=== PATIENT | female | born 1955 | race Caucasian/White ===

== ENCOUNTER 2020-11-25 11:32 | Observation (INO) ==
[2020-11-25] MEDS ORDERED: SODIUM CHLORIDE 0.9% 1,000 ML IV STA (14:32)
[2020-11-25] MEDS ORDERED: cefTRIAXone 1,000 MG in SODIUM CHLORIDE 0.9% 100 ML IV STA (15:01)
[2020-11-25 15:25] LABS: Basophils % 0.6 % (0.0-0.8); Eosinophils # 0.4 10*3/uL (0.0-0.87); Eosinophils % 6.8 % (0.00-10.9); Hematocrit 31.5 VOL% (35.7-47.0); Hemoglobin 9.9 GM/DL (12.0-16.0); Immature Granulocytes % 0.3 %; Immature Granulocytes Absolute 0.02 #; Lymphocytes # 1.1 10*3/uL (1.4-4.0); Lymphocytes % 17.3 % (21.3-54.2); Mean Corpuscular HGB Conc 31.4 GM/DL (32-36); Mean Corpuscular Volume 76.5 FL (87-102); Monocytes % 7.9 % (1.7-12.7); Neutrophils % 67.1 % (38.7-73.9); Platelet Count 230 T/CUMM (130-400); Red Blood Count 4.12 MC/CUMM (3.8-5.5); Red Cell Distribution Width 14.7 % (9.3-17.3); White Blood Count 6.4 T/CUMM (4-12)
[2020-11-25 15:50] LABS: Alanine Aminotransferase 15 U/L (13-56); Albumin 3.2 G/DL (3.4-5.0); Alkaline Phosphatase 99 U/L (45-117); Aspartate Amino Transferase 18 U/L (0-37); Bilirubin,Total < 0.39 MG/DL (0.20-1.00); Blood Urea Nitrogen 19 MG/DL (7-18); Calcium 8.9 MG/DL (8.5-10.1); Carbon Dioxide 26 MMOL/L (21-32); Estimated Glom Filtration Rate 55 ML/MIN; Glucose 216 MG/DL (74-106); Osmolality,Calculated 278.1 MOS/KG (273-304); Potassium 4.4 MMOL/L (3.5-5.1); Sodium 135 MMOL/L (136-145); Total Protein 7.2 G/DL (6.4-8.2)
[2020-11-25 16:01] LABS: Bacteria,Urine Occasional /HPF (Few); Bilirubin,Urine Negative (Negative); Blood, Urine Negative (Negative); Glucose,Urine (UA) Negative (Negative); Ketones,Urine Negative (Negative); Nitrite,Urine Positive (Negative); Protein,Urine Negative; RBC,Urine 1 /HPF (0-4); Urine Appearance CLEAR (Clear); Urine Color Yellow (Yellow); Urine Specific Gravity 1.006 (1.001-1.035); Urine Urobilinogen < 2.0 EU/DL (0.2-1.0)
[2020-11-25] MEDS ORDERED: ONDANSETRON 4 MG/2 ML VIAL IV PRN (16:43)
[2020-11-25] MEDS: SODIUM CHLORIDE 0.9% 1,000 ML IV SCH (17:33)
[2020-11-25] MEDS ORDERED: ALBUTEROL 2.5 MG/3 ML NEB RESP TX PRN (18:36)
[2020-11-25] MEDS ORDERED: FUROSEMIDE 40 MG TABLET PO PRN (18:36)
[2020-11-25] MEDS ORDERED: LORATADINE 10 MG TABLET PO PRN (18:36)
[2020-11-25] MEDS ORDERED: ALBUTEROL SULFATE 90 MCG INH PRN (18:36)
[2020-11-25] MEDS ORDERED: GLUCAGON 1 MG VIAL IM PRN (18:46)
[2020-11-25] MEDS ORDERED: DEXTROSE 50% 25 GM/50 ML VIAL IV PRN (18:46)
[2020-11-25] MEDS ORDERED: MAGNESIUM CHLORIDE 64 MG TABLET PO PRN (19:56)
[2020-11-25] MEDS: MELOXICAM 7.5 MG TABLET PO SCH (21:24)
[2020-11-25] MEDS: tiZANidine 4 MG TABLET PO PRN (21:25)
[2020-11-25] MEDS: PANTOPRAZOLE 40 MG TABLET PO SCH (21:25)
[2020-11-25] MEDS: traZODone 50 MG TABLET PO SCH (21:25)
[2020-11-25] MEDS: PRAMIPEXOLE 0.25 MG TABLET PO SCH (21:26)
[2020-11-25] MEDS: GABAPENTIN 300 MG CAPSULE PO SCH (21:26)
[2020-11-25] MEDS: oxyCODONE/ACETAMINOPHEN 5-325 MG TABLET PO PRN (21:26)
[2020-11-25] MEDS: DOCUSATE SODIUM 100 MG CAPSULE PO SCH (21:26)
[2020-11-25] MEDS: FLUoxetine 20 MG CAPSULE PO SCH (21:27)
[2020-11-25] MEDS: INSULIN GLARGINE 100 UNIT/ML SUBCUT SCH (21:27)
[2020-11-25] MEDS: INSULIN LISPRO 100 UNIT/ML SUBCUT SCH (21:28)
[2020-11-25] MEDS: PROPRANOLOL 20 MG TABLET PO SCH (21:29)
[2020-11-26] MEDS: SODIUM CHLORIDE 0.9% 1,000 ML IV SCH ×2 (01:16→16:33)
[2020-11-26] MEDS: LOPERAMIDE 2 MG CAPSULE PO PRN ×2 (04:10→17:08)
[2020-11-26] MEDS: hydrOXYzine HCL 25 MG TABLET PO PRN ×2 (04:38→15:07)
[2020-11-26] MEDS: LEVOTHYROXINE 50 MCG TABLET PO SCH (05:33)
[2020-11-26] MEDS: tiZANidine 4 MG TABLET PO PRN ×4 (05:33→22:13)
[2020-11-26] MEDS: LEVOTHYROXINE 200 MCG TABLET PO SCH (05:33)
[2020-11-26] MEDS ORDERED: INSULIN LISPRO 100 UNIT/ML SUBCUT SCH (08:00)
[2020-11-26] MEDS ORDERED: hydrALAZINE 20 MG/1 ML VIAL IV PRN (08:34)
[2020-11-26] MEDS ORDERED: PANTOPRAZOLE 40 MG TABLET PO SCH (09:00)
[2020-11-26] MEDS: cefTRIAXone 1,000 MG in SODIUM CHLORIDE 0.9% 100 ML IV SCH (09:43)
[2020-11-26] MEDS: INSULIN GLARGINE 100 UNIT/ML SUBCUT SCH ×2 (09:44→21:53)
[2020-11-26] MEDS: INSULIN LISPRO 100 UNIT/ML SUBCUT SCH ×4 (09:45→21:53)
[2020-11-26] MEDS: MELOXICAM 7.5 MG TABLET PO SCH ×3 (09:45→22:47)
[2020-11-26] MEDS: traZODone 50 MG TABLET PO SCH ×3 (09:46→21:57)
[2020-11-26] MEDS: oxyCODONE/ACETAMINOPHEN 5-325 MG TABLET PO PRN (09:47)
[2020-11-26] MEDS: GABAPENTIN 300 MG CAPSULE PO SCH ×2 (09:48→21:57)
[2020-11-26] MEDS: LOSARTAN 25 MG TABLET PO SCH (09:48)
[2020-11-26] MEDS: FLUTICASONE 50 MCG NASAL SPRAY 16 GM BOTTLE BOTH NARES SCH (09:48)
[2020-11-26] MEDS: DOCUSATE SODIUM 100 MG CAPSULE PO SCH ×2 (09:48→22:02)
[2020-11-26] MEDS: ACETAMINOPHEN 325 MG TABLET PO PRN (15:07)
[2020-11-26] MEDS: DESITIN 4OZ/NYSTATIN 15 GRAM MIXTURE PASTE TOP SCH ×2 (15:08→22:01)
[2020-11-26] MEDS: SKIN HEALING OINT (AQUAPHOR) 50 GM TUBE TOP SCH (15:08)
[2020-11-26] MEDS: SODIUM HYPOCHLORITE 0.25% IRRIG 473 ML BOTTLE TOP SCH (17:10)
[2020-11-26] MEDS: PROPRANOLOL 20 MG TABLET PO SCH (21:57)
[2020-11-26] MEDS: FLUoxetine 20 MG CAPSULE PO SCH (21:57)
[2020-11-26] MEDS: PANTOPRAZOLE 40 MG TABLET PO SCH (21:58)
[2020-11-26] MEDS: PRAMIPEXOLE 0.25 MG TABLET PO SCH (21:58)
[2020-11-27] MEDS: oxyCODONE/ACETAMINOPHEN 5-325 MG TABLET PO PRN ×2 (00:12→08:46)
[2020-11-27] MEDS: LOPERAMIDE 2 MG CAPSULE PO PRN ×3 (04:35→12:46)
[2020-11-27] MEDS: LEVOTHYROXINE 200 MCG TABLET PO SCH (05:36)
[2020-11-27] MEDS: ACETAMINOPHEN 325 MG TABLET PO PRN ×2 (05:36→12:45)
[2020-11-27] MEDS: LEVOTHYROXINE 50 MCG TABLET PO SCH (05:36)
[2020-11-27 05:39] LABS: Basophils # 0.1 10*3/uL (0.0-0.2); Basophils % 1.1 % (0.0-0.8); Eosinophils # 0.4 10*3/uL (0.0-0.87); Eosinophils % 8.1 % (0.00-10.9); Hematocrit 28.8 VOL% (35.7-47.0); Hemoglobin 8.5 GM/DL (12.0-16.0); Immature Granulocytes % 0.4 %; Immature Granulocytes Absolute 0.02 #; Lymphocytes # 0.8 10*3/uL (1.4-4.0); Lymphocytes % 16.8 % (21.3-54.2); Mean Corpuscular HGB Conc 29.5 GM/DL (32-36); Mean Corpuscular Volume 78.3 FL (87-102); Mean Platelet Volume 9.1 FL (9.6-12.0); Neutrophils % 64.6 % (38.7-73.9); Platelet Count 190 T/CUMM (130-400); Red Blood Count 3.68 MC/CUMM (3.8-5.5); Red Cell Distribution Width 14.7 % (9.3-17.3); White Blood Count 4.5 T/CUMM (4-12)
[2020-11-27 06:11] LABS: Albumin 2.6 G/DL (3.4-5.0); Bilirubin,Total 0.4 MG/DL (0.20-1.00); Calcium 8.3 MG/DL (8.5-10.1); Osmolality,Calculated 280.3 MOS/KG (273-304); Potassium 3.7 MMOL/L (3.5-5.1); Thyroid Stimulating Hormone 25.7 uIU/ml (0.358-3.74); Total Protein 6.4 G/DL (6.4-8.2)
[2020-11-27] MEDS: INSULIN LISPRO 100 UNIT/ML SUBCUT SCH ×3 (07:48→16:04)
[2020-11-27] MEDS: cefTRIAXone 1,000 MG in SODIUM CHLORIDE 0.9% 100 ML IV SCH (08:46)
[2020-11-27] MEDS: MELOXICAM 7.5 MG TABLET PO SCH (08:47)
[2020-11-27] MEDS: LOSARTAN 25 MG TABLET PO SCH (08:47)
[2020-11-27] MEDS: traZODone 50 MG TABLET PO SCH ×2 (08:47→16:04)
[2020-11-27] MEDS: hydrOXYzine HCL 25 MG TABLET PO PRN (08:48)
[2020-11-27] MEDS: SKIN HEALING OINT (AQUAPHOR) 50 GM TUBE TOP SCH (08:48)
[2020-11-27] MEDS: GABAPENTIN 300 MG CAPSULE PO SCH (08:48)
[2020-11-27] MEDS: INSULIN GLARGINE 100 UNIT/ML SUBCUT SCH (08:48)
[2020-11-27] MEDS: tiZANidine 4 MG TABLET PO PRN (08:48)
[2020-11-27] MEDS: DOCUSATE SODIUM 100 MG CAPSULE PO SCH (08:49)
[2020-11-27] MEDS: DESITIN 4OZ/NYSTATIN 15 GRAM MIXTURE PASTE TOP SCH (08:49)
[2020-11-27] MEDS: FLUTICASONE 50 MCG NASAL SPRAY 16 GM BOTTLE BOTH NARES SCH (08:49)
[2020-11-27] MEDS: SODIUM HYPOCHLORITE 0.25% IRRIG 473 ML BOTTLE TOP SCH (08:49)
[2020-11-27 09:00] LABS: Hemoglobin 8.7 GM/DL (12.0-16.0)
[2020-11-27] MEDS: SODIUM CHLORIDE 0.9% 1,000 ML IV SCH (09:53)
[2020-11-27 12:33] VITALS: BP 158/55
[2020-11-28] MEDS ORDERED: LEVOTHYROXINE 75 MCG TABLET PO SCH (06:30)
== END 2020-11-27 16:04 | disposition home or self-care (01) ==
LOC: N.EDINP 11:32 → N.ED 11:32 → N.EDINP 17:46 → N.5E 17:50
PROVIDERS: ADMIT Family Medicine; ATTEND Family Medicine